=== PATIENT | male | born 1995 | race Caucasian/White ===

== ENCOUNTER 2017-03-08 01:33 | Emergency (ER) | payer SELFPAY ==
[~2017-03-08] VITALS: Ht 188 cm; Wt 158.1 kg
[~2017-03-08 01:33] MED LIST: KETOCONAZOLE60 GM TP
[2017-03-08] MEDS ORDERED: NORCO 5/3251 TABLET PO (02:26)
[2017-03-08] MEDS ORDERED: NAPROSYN500 MG PO (02:26)
[2017-03-08 02:42] VITALS: BP 138/106
== END 2017-03-08 02:43 | disposition home or self-care (01) ==
LOC: EME 01:33
DX: S60.221A Contusion of right hand, initial encounter (principal); W22.09XA Striking against other stationary object, initial encounter
CPT/HCPCS: 73130; 99281; 99284

== ENCOUNTER 2017-08-19 19:53 | Emergency (ER) | payer SELFPAY ==
[~2017-08-19] VITALS: Ht 188 cm; Wt 162.3 kg
[~2017-08-19 19:53] MED LIST changes: +NAPROSYN500 MG PO; +NORCO 5/3251 TABLET PO
[2017-08-19 20:32] VITALS: BP 153/88
[2017-08-19] MEDS ORDERED: NAPROSYN500 MG PO (23:27)
== END 2017-08-19 23:51 | disposition home or self-care (01) ==
LOC: EME 19:53
DX: M79.671 Pain in right foot (principal)
CPT/HCPCS: 73630; 99281; 99283

== ENCOUNTER 2018-01-25 08:45 | Emergency (ER) | payer SELFPAY ==
[~2018-01-25] VITALS: Ht 188 cm; Wt 164.4 kg
[2018-01-25 08:51] VITALS: BP 147/86
[2018-01-25 09:52] LABS: HEMATOCRIT 47.5 % (38.0-50.0); MCH 28.7 PG (29.0-34.0); MCHC 33.7 G/DL (30.0-36.0); MCV 85.3 FL (86-99); PLATELET COUNT 205 K/uL (156-360); RBC DIS.WIDTH-CV 13.1 % (11.8-14.6); RBC DIS.WIDTH-SD 40.5 % (39-53); RED BLOOD COUNT 5.57 M/uL (4.00-5.50); WHITE BLOOD COUNT 6.4 K/uL (4.1-10.2)
[2018-01-25 10:02] LABS: CHLORIDE 99 mEq/L (99-109); POTASSIUM 4.5 mEq/L (3.7-5.4); SODIUM 136 mEq/L (136-147)
[2018-01-25 10:03] LABS: GLUCOSE 114 mg/dL (70-99)
[2018-01-25 10:07] LABS: CREATININE 1.1 mg/dL (0.6-1.3); GFR ESTIMATE (CALCULATED) > 59 mL/min/ (58.99-99999)
[2018-01-25 10:08] LABS: UREA NITROGEN (BUN) 15 mg/dL (9-23)
[2018-01-25 11:00] LABS: APPEARANCE CLEAR ((CLEAR)); BILIRUBIN NEGATIVE; BLOOD NEGATIVE; COLOR YELLOW ((YELLOW)); GLUCOSE (STRIP) NEGATIVE; KETONES NEGATIVE; LEUKOCYTES NEGATIVE; NITRITE NEGATIVE; PROTEIN (STRIP) 30; SPECIFIC GRAVITY 1.029 (1.000-1.030); UCUL ADDED? NO; UROBILINOGEN 0.2 MG/DL (0.2-1.0)
== END 2018-01-25 12:39 | disposition left against medical advice (07) ==
LOC: EME 08:45
DX: R11.2 Nausea with vomiting, unspecified (principal); R19.7 Diarrhea, unspecified; Z53.21 Procedure and treatment not carried out due to patient leaving prior to being seen by health care provider
CPT/HCPCS: 80048; 81003; 85027